=== PATIENT | female | born 1990 | race Caucasian/White ===

== ENCOUNTER 2016-06-29 09:51 | Day surgery (SDC) | payer BC ==
[2016-06-26 11:50] LABS: BILIRUBIN,URINE NEGATIVE (NEGATIVE); BLOOD, URINE NEGATIVE (NEGATIVE); CLARITY/URINE HAZY (CLEAR); COLOR,URINE YELLOW (YELLOW); GLUCOSE,URINE NEGATIVE (NEGATIVE); KETONES,URINE NEGATIVE (NEGATIVE); LEUKOCYTE ESTERASE ,URINE NEGATIVE (NEGATIVE); NITRITE, URINE NEGATIVE (NEGATIVE); PROTEIN URINE NEGATIVE (NEGATIVE); UROBILINOGEN,URINE 0.2 (0.2-1.0)
[2016-06-26 11:56] LABS: BASOPHILS % (AUTO) 0.5 % (0.0-2.0); EOSINOPHILS # (AUTO) 0.3 K/uL (0.0-0.4); EOSINOPHILS % (AUTO) 4.7 % (0.0-4.0); HEMOGLOBIN 13.7 g/dL (12.0-16.0); LYMPHOCYTES # (AUTO) 2.4 K/uL (1.0-5.5); LYMPHOCYTES % (AUTO) 34.9 % (20.5-51.5); MEAN CORPUSCULAR HEMOGLOBIN 28 pg (27-31); MEAN CORPUSCULAR HGB CONC 33 % (32-36); MEAN CORPUSCULAR VOLUME 84 fL (79.0-98.0); MONOCYTES # (AUTO) 0.5 K/uL (0.0-1.0); MONOCYTES % (AUTO) 6.9 % (1.7-9.3); NEUTROPHILS # (AUTO) 3.6 K/uL (1.8-7.7); PLATELET COUNT (AUTO) 322 K/uL (130-430); RED BLOOD CELL COUNT(AUTO) 4.98 MIL/uL (4.2-6.2); RED CELL DISTRIBUTION WIDTH 12.7 % (9.0-15.0); WHITE BLOOD COUNT (AUTO) 6.8 K/uL (4.8-10.8)
[2016-06-26 12:07] LABS: CALCIUM 9.1 mg/dL (8.4-11.0); CREATININE 0.69 mg/dL (0.55-1.30); POTASSIUM 3.8 mmol/L (3.5-5.1)
[~2016-06-29] VITALS: Ht 170.2 cm; Wt 82.6 kg
[2016-06-29] MEDS ORDERED: CEFAZOLIN SOD 2 GM in D5W 50 ML IV ONE (10:30)
[2016-06-29 10:44] VITALS: O2SAT 99
[2016-06-29] MEDS ORDERED: LR 1,000 ML IV ONE (13:18)
[2016-06-29] MEDS ORDERED: ONDANSETRON HCL 4 MG/2 ML VIAL IVP PRN ×2 (13:30)
[2016-06-29] MEDS ORDERED: NALOXONE HCL 0.4 MG/ML AMP (NARCAN) IVP PRN (13:30)
[2016-06-29] MEDS ORDERED: fentaNYL CITRATE/PF 100 MCG/2 ML AMP IVP PRN (13:30)
[2016-06-29] MEDS ORDERED: DIPHENHYDRAMINE INJ 50 MG/ML VIAL IVP PRN (13:30)
[2016-06-29] MEDS ORDERED: NALBUPHINE HCL 10 MG/ML AMP IVP PRN (13:30)
[2016-06-29] MEDS ORDERED: ePHEDrine sulfate 50 MG/ML VIAL IVP PRN (13:30)
[2016-06-29] MEDS ORDERED: PROPOFOL 200MG/ 20ML VIAL (DIPRIVAN) IV ONE (14:00)
[2016-06-29] MEDS ORDERED: KETOROLAC TROMETHAMINE 30 MG VIAL ONE (14:00)
[2016-06-29] MEDS ORDERED: NS IRRIG SOLN 5000 ML IR ONE (14:00)
[2016-06-29] MEDS ORDERED: MEPERIDINE HCL/PF 100 MG/ML AMP ONE (14:00)
[2016-06-29] MEDS ORDERED: LR 1,000 ML IV.SOLN IV ONE (14:00)
[2016-06-29] MEDS ORDERED: SEVOFLURANE 15 MIN GAS INH ONE (14:00)
[2016-06-29] MEDS ORDERED: DEXAMETHASONE SOD PHOSPHATE 4 MG/ML VIAL ONE (14:00)
[2016-06-29] MEDS ORDERED: BUPIVACAINE /EPINEPHRINE/PF 0.25% 30 ML VIAL INJ ONE (14:00)
[2016-06-29] MEDS ORDERED: MIDAZOLAM HCL 5 MG/5 ML VIAL ONE ×2 (14:00)
[2016-06-29] MEDS ORDERED: METOCLOPRAMIDE HCL 10 MG/2 ML VIAL ONE (14:00)
[2016-06-29] MEDS ORDERED: LR 1,000 ML IV SCH (14:05)
[2016-06-29] MEDS ORDERED: DIPHENHYDRAMINE HCL 25 MG CAPSULE PO PRN (14:15)
[2016-06-29] MEDS ORDERED: traMADol HCL HCL 50 MG TABLET (ULTRAM) PO PRN (14:30)
[2016-06-29 14:50] VITALS: BP 107/76; PULSE 75; RESP 16
== END 2016-06-29 15:56 | disposition home or self-care (01) ==
LOC: SDS 09:51 → SMU 09:53 → SDS 15:56
PROVIDERS: ATTEND Orthopaedic Surgery
DX: S83.411A Sprain of medial collateral ligament of right knee, initial encounter (principal); M25.461 Effusion, right knee; X58.XXXA Exposure to other specified factors, initial encounter; Y93.9 Activity, unspecified; Y92.89 Other specified places as the place of occurrence of the external cause; Y99.9 Unspecified external cause status
CPT/HCPCS: 29876; 36415; 71020; 80048; 81003; 84703; 85025; 87070; 87075; 87101; 87116; 88305; 88311; J0690; J1100; J1885; J2175; J2250; J2704; J2765; J3490; J7060; J7120; 88312